=== PATIENT | female | born 2000 | race Two or more races ===

== ENCOUNTER 2020-03-06 23:00 | Emergency (ER) | payer BC, MEDICAID ==
[~2020-03-06] VITALS: Ht 162.6 cm; Wt 84.8 kg
[2020-12-21] MEDS ORDERED: DOXY1TAB4 PO (22:11)
[2020-12-21] MEDS ORDERED: METO-295 PO (22:11)
--- NOTE | 2021-03-05 23:18 | NUR ---
PT AMBULATED TO ER WITH C/O PAIN WHILE URINATING. A/O X4, NO SOB OR LABORED BREATHING, AFEBRILE. DR. CHAHAL AT BEDSIDE, MSE IN PROGRESS.
[2021-03-05 23:55] LABS: *BILIRUBIN,URIN NEGATIVE (NEGATIVE); *CLARITY,URINE CLEAR (CLEAR); *KETONES,URINE NEGATIVE (NEGATIVE); *UROBILINOGEN,URINE 0.2 E.U./dl (NORMAL); LEUKOCYTE ESTERASE ,URINE NEGATIVE (NEGATIVE); NITRITE, URINE NEGATIVE (NEGATIVE); UGLUCOSE NEGATIVE (NEGATIVE)
[2021-03-06 00:01] LABS: *BLOOD, URINE TRACE (NEGATIVE); *COLOR,URINE STRAW (YELLOW)
[2021-03-06 00:04] LABS: *URINE HCG, QUAL NEGATIVE (NEGATIVE)
[2021-03-06 00:05] LABS: BACTERIA,URINE NONE SEEN /HPF (NONE SEEN); RBC,URINE 0-3 /HPF (0-3); SQUAMOUS EPITHELIAL CELL,UR FEW /HPF (NONE SEEN); WBC,URINE 0-3 /HPF (0-3)
--- NOTE | 2021-03-06 00:37 | NUR ---
PT DISCHARGED WITHOUT DISCHARGED PAPERS. PT WAS A/O X4, NO SOB OR LABORED BREATHING. STEADY GAIT.
[2021-03-06 00:39] VITALS: BP 122/78
[2021-04-10] MEDS ORDERED: ALBUTEROL SULFATE 2.5 MG/3 ML NEBU ONE (17:08)
== END 2021-03-06 | disposition home or self-care (01) ==
LOC: ER 03-06 00:40
DX: R30.0 Dysuria (principal)
CPT/HCPCS: 84703; A4663

== ENCOUNTER 2020-12-21 18:22 | Emergency (ER) | payer BC ==
[~2020-12-21] VITALS: Ht 162.6 cm; Wt 81.6 kg
[2020-12-21] MEDS ORDERED: IV NORMAL SALINE 1000 ML BAG IV ONE ×2 (18:45→20:00)
[2020-12-21] MEDS ORDERED: ONDANSETRON 4 MG/2 ML VIAL IV ONE (18:45)
--- NOTE | 2020-12-21 18:45 | NUR ---
Pending MD evaluation, patient is AOx4, significant other @bedside.
--- NOTE | 2020-12-21 18:54 | NUR ---
Hands off report given to EDUARDA Saleh.
--- NOTE | 2020-12-21 19:00 | NUR ---
Report received from Rina LERNER. Patient ambulated to BR without problem; voided Specimen sent to lab. BF at bedside. IV started to LW IV site. Seen and evaluated by Dr. Koo.
[2020-12-21 19:11] LABS: BASOPHILS % (AUTO) 0.1 % (0.0-2.0); EOSINOPHILS # (AUTO) 0.1 K/uL (0.0-0.7); EOSINOPHILS % (AUTO) 0.3 % (0.0-7.0); HEMATOCRIT 39.6 % (31.2-41.9); HEMOGLOBIN 13.4 g/dL (10.9-14.3); LYMPHOCYTES # (AUTO) 0.6 K/uL (20.0-40.0); LYMPHOCYTES % (AUTO) 3.3 % (20.5-51.5); MEAN CORPUSCULAR HEMOGLOBIN 27.9 uug (24.7-32.8); MEAN CORPUSCULAR HGB CONC 34 g/dL (32.3-35.6); MEAN CORPUSCULAR VOLUME 82.6 fL (75.5-95.3); MONOCYTES # (AUTO) 0.7 K/uL (2.0-10.0); MONOCYTES % (AUTO) 4.4 % (0.0-11.0); NEUTROPHILS # (AUTO) 15.4 K/uL (1.8-8.9); NEUTROPHILS % (AUTO) 91.9 % (38.5-71.5); PLATELET COUNT (AUTO) 327 K/uL (179-408); RED BLOOD CELL COUNT(AUTO) 4.79 MIL/uL (3.63-4.92); WHITE BLOOD COUNT (AUTO) 16.8 K/uL (3.8-11.8)
[2020-12-21 19:13] LABS: *BILIRUBIN,URIN NEGATIVE (NEGATIVE); *BLOOD, URINE NEGATIVE (NEGATIVE); *CLARITY,URINE CLEAR (CLEAR); *COLOR,URINE YELLOW (YELLOW); *KETONES,URINE 2+ (NEGATIVE); *UROBILINOGEN,URINE 0.2 E.U./dl (NORMAL); LEUKOCYTE ESTERASE ,URINE NEGATIVE (NEGATIVE); NITRITE, URINE NEGATIVE (NEGATIVE); PH,URINE 8.5 (5.0-8.0); UGLUCOSE NEGATIVE (NEGATIVE)
[2020-12-21] MEDS ORDERED: FAMOTIDINE. 20 MG/2 ML VIAL IV ONE ×2 (19:15→19:24)
[2020-12-21] MEDS ORDERED: METOCLOPRAMIDE HCL 10 MG/2 ML VIAL IV ONE (19:15)
[2020-12-21] MEDS ORDERED: ONDANSETRON 4 MG/2 ML VIAL ONE (19:17)
[2020-12-21 19:18] LABS: CREATININE 0.6 mg/dL (0.6-1.3); POTASSIUM 3.4 mmol/L (3.5-5.1)
[2020-12-21 19:19] LABS: *URINE HCG, QUAL POSITIVE (NEGATIVE); ETHANOL < 3 MG/DL (0-0)
[2020-12-21 19:20] LABS: MAGNESIUM 1.6 mg/dL (1.8-2.4); PHOSPHOROUS 3.7 mg/dL (2.5-4.9)
[2020-12-21 19:23] LABS: BILIRUBIN,DIRECT 0.1 mg/dL (0.0-0.2); BILIRUBIN,TOTAL 0.5 mg/dL (0.2-1.0); TOTAL PROTEIN, SERUM 7.4 g/dL (6.4-8.2)
[2020-12-21] MEDS ORDERED: METOCLOPRAMIDE HCL 10 MG/2 ML VIAL ONE (19:23)
[2020-12-21 19:24] LABS: *AMPHETAMINE, URINE NEGATIVE (NEGATIVE); *CANNABINOID, URINE POSITIVE (NEGATIVE); *COCCAINE, URINE NEGATIVE (NEGATIVE); *OPIATE, URINE NEGATIVE (NEGATIVE); *PHENCYCLIDINE SCREEN,URINE NEGATIVE (NEGATIVE)
[2020-12-21] MEDS ORDERED: POTASSIUM CHLORIDE 20 MEQ TAB.PRT.SR PO ONE (20:00)
[2020-12-21] MEDS ORDERED: MAGNESIUM SULFATE/D5W 100 ML ONE ×2 (20:01→20:25)
[2020-12-21] MEDS ORDERED: POTASSIUM CHLORIDE 20 MEQ TAB.PRT.SR ONE (20:01)
[2020-12-21] MEDS: MAGNESIUM SULFATE/D5W 100 ML IV SCH ×2 (20:03→20:40)
--- NOTE | 2020-12-21 20:05 | NUR ---
Pelvic US done at bedside. Nausea subsided as per patient.
--- NOTE | 2020-12-21 21:10 | NUR ---
IVs Magnesium Sulfate 2 Gms and NS 2 L completed. Patient ambulated to BR; voided. Relieved of nausea.
--- NOTE | 2020-12-21 21:45 | NUR ---
Dr. Koo spoke with Dr. Cynthia FRIEND re: patient's condition.
--- NOTE | 2020-12-21 22:05 | NUR ---
Dr. Koo discussed results of pelvic ultrasound and plan of care with patient and patient's BF; patient verbalized understanding.
[2020-12-21] MEDS ORDERED: METO-295 PO (22:11)
[2020-12-21] MEDS ORDERED: DOXY1TAB4 PO (22:11)
--- NOTE | 2020-12-21 22:15 | NUR ---
Patient discharged to home in stable condition. Written and verbal after care instructions given. Patient verbalizes understanding of instructions. Stressed follow up or return to ER for worsening s/s.
[2020-12-21 22:24] VITALS: BP 119/67
== END 2020-12-21 22:15 | disposition home or self-care (01) ==
LOC: ER 18:25
DX: O03.33 Metabolic disorder following incomplete spontaneous abortion (principal); E87.6 Hypokalemia; O03.39 Incomplete spontaneous abortion with other complications; R11.2 Nausea with vomiting, unspecified; E83.42 Hypomagnesemia; R10.2 Pelvic and perineal pain; R82.4 Acetonuria
CPT/HCPCS: 36415; 76856; 80048; 80076; 80307; 80320; 81003; 83690; 83735; 84100; 84702; 84703; 85025; 86850; 86900; 86901; 96361; 96365; 96375; 99284; J2765; J3475 ×2; J3490; A4663; G0480; J2405; J7030

== ENCOUNTER 2020-12-22 03:49 | Emergency (ER) | payer SELFPAY ==
[~2020-12-22 03:49] MED LIST: DOXY1TAB4 PO; METO-295 PO
--- NOTE | 2020-12-22 04:04 | NUR ---
Patient left without being seen.
== END 2020-12-22 04:04 | disposition left against medical advice (07) ==
LOC: ER 03:51
DX: Z53.21 Procedure and treatment not carried out due to patient leaving prior to being seen by health care provider (principal)

== ENCOUNTER 2021-02-24 11:45 | Emergency (ER) | payer SELFPAY | END 2021-02-24 11:49 | disposition left against medical advice (07) | LOC: ER 11:45 | DX: Z53.21 Procedure and treatment not carried out due to patient leaving prior to being seen by health care provider (principal) ==

== ENCOUNTER 2021-08-20 05:49 | Emergency (ER) | payer SELFPAY | END 2021-08-21 09:20 | disposition left against medical advice (07) | LOC: ER 05:50 | DX: Z53.21 Procedure and treatment not carried out due to patient leaving prior to being seen by health care provider (principal) ==